=== PATIENT | female | born 1960 | race Caucasian/White ===

== ENCOUNTER → 2024-01-25 14:04 | Outpatient (REF) | payer OTHER, SELFPAY | LOC: RAD 14:04 | PROVIDERS: ATTENDING PHYSICIAN Physician Assistant Medical | DX: F32.1 Major depressive disorder, single episode, moderate (principal); F41.9 Anxiety disorder, unspecified; Z00.00 Encounter for general adult medical examination without abnormal findings; R04.0 Epistaxis; M85.80 Other specified disorders of bone density and structure, unspecified site | CPT/HCPCS: 77080 ==

== ENCOUNTER → 2025-06-05 18:33 | Outpatient (REF) | payer OTHER, SELFPAY | LOC: WDC 18:33 | PROVIDERS: ATTENDING PHYSICIAN Physician Assistant Medical | DX: Z12.31 Encounter for screening mammogram for malignant neoplasm of breast (principal) | CPT/HCPCS: 77063; 77067 ==